=== PATIENT | female | born 1990 | race African-American/Black ===

== ENCOUNTER 2024-02-04 11:18 | Emergency (ER) | payer OTHER, SELFPAY ==
[2024-02-04 11:21] VITALS: BP 138/84; PULSE 102; RESP 18; TEMP 36.5; O2SAT 100
--- NOTE | 2024-02-04 11:50 | ED.GENADULT ---
HPI - General Adult General Chief complaint: Animal Bite Stated complaint: Stung By Wasp Time Seen by Provider: 02/04/24 11:33 History of Present Illness HPI narrative: 33-year-old female presented to the emergency department for evaluation for a wasp sting to her left arm. Patient states she has never had a wasp sting before. Patient felt that she was having some swelling of her left arm and patient presented to the emergency department by EMS. Patient states this happened approximately 11:00 a.m.. Patient states he did have some pain in her left arm at the site of the sting. Patient denies any difficulty breathing or swallowing. Patient denies any systemic itching or hives. Related Data Allergies Allergy/AdvReac Type Severity Reaction Status Date / Time amoxicillin Allergy Unknown Verified 02/04/24 11:24 Review of Systems Review of Systems: All systems reviewed & are unremarkable except as noted in HPI and below Exam Narrative: APPEARANCE: Well appearing, no pain, no distress, well-nourished. HEAD: normocephalic, atraumatic. EYES: PERRLA/EOMI, conjunctivae clear. NOSE: Normal no drainage EARS:TMS clear with good light reflex. THROAT: Pharynx clear, no exudate. NECK: Supple. No adenopathy, no masses. RESPIRATORY: Airway patent, respirations nonlabored. Clear to auscultation bilaterally, no rales, rhonchi, wheezing. CARDIOVASCULAR: Regular rate and rhythm without murmurs rubs or gallops. ABDOMINAL: Soft, nontender, nondistended, normal bowel sounds MUSCULOSKELETAL: Moves all extremities. Strength/ROM intact, No edema, No calf tenderness. NEURO: Alert. Cranial nerves II through XII intact. Good gait. Good coordination SKIN: 2 cm area on the posterior left forearm that is raised consistent with a wasp sting Course Course Emergency Course: APPEARANCE: Well appearing, no pain, no distress, well-nourished. HEAD: normocephalic, atraumatic. EYES: PERRLA/EOMI, conjunctivae clear. NOSE: Normal no drainage EARS:TMS clear with good light reflex. THROAT: Pharynx clear, no exudate. NECK: Supple. No adenopathy, no masses. RESPIRATORY: Airway patent, respirations nonlabored. Clear to auscultation bilaterally, no rales, rhonchi, wheezing. CARDIOVASCULAR: Regular rate and rhythm without murmurs rubs or gallops. ABDOMINAL: Soft, nontender, nondistended, normal bowel sounds MUSCULOSKELETAL: Moves all extremities. Strength/ROM intact, No edema, No calf tenderness. NEURO: Alert. Cranial nerves II through XII intact. Grossly intact SKIN: Possible sting to posterior left upper arm, neurovascularly intact Vital Signs Vital signs: Vital Signs Temperature 97.7 F 02/04/24 11:21 Pulse Rate 102 H 02/04/24 11:21 Respiratory Rate 18 02/04/24 11:21 Blood Pressure 138/84 02/04/24 11:21 Pulse Oximetry 100 02/04/24 11:21 Oxygen Delivery Room Air 02/04/24 11:21 Temperature 97.7 F 02/04/24 11:21 Pulse Rate 95 02/04/24 12:34 Respiratory Rate 16 02/04/24 12:34 Blood Pressure 130/80 02/04/24 12:34 Pulse Oximetry 99 02/04/24 12:34 Oxygen Delivery Room Air 02/04/24 11:21 Medical Decision Making MDM Narrative Medical decision making narrative: 33-year-old female presented to the emergency department for evaluation for a wasp sting. Patient has no evidence of allergic reaction. Patient is being discharged to home with instructions for symptomatic treatment. Vital Signs Vital Signs: Vital Signs Temperature 97.7 F 02/04/24 11:21 Pulse Rate 102 H 02/04/24 11:21 Respiratory Rate 18 02/04/24 11:21 Blood Pressure 138/84 02/04/24 11:21 Pulse Oximetry 100 02/04/24 11:21 Oxygen Delivery Room Air 02/04/24 11:21 Temperature 97.7 F 02/04/24 11:21 Pulse Rate 95 02/04/24 12:34 Respiratory Rate 16 02/04/24 12:34 Blood Pressure 130/80 02/04/24 12:34 Pulse Oximetry 99 02/04/24 12:34 Oxygen Delivery Room Air 02/04/24 11:21 Discharge Plan Discharge Clinical
[2024-02-04 12:34] VITALS: BP 130/80; PULSE 95; RESP 16; O2SAT 99
== END 2024-02-04 12:34 | disposition home or self-care (01) ==
PROVIDERS: Emergency Provider Emergency Medicine
DX: T63.461A Toxic effect of venom of wasps, accidental (unintentional), initial encounter (principal)
CPT/HCPCS: 99282